=== PATIENT | male | born 1960 | race Two or more races ===

== ENCOUNTER 2022-04-19 01:06 | Emergency (ER) | payer OTHER ==
[~2022-04-19] VITALS: Ht 167.6 cm; Wt 87.1 kg
--- NOTE | 2022-04-19 01:35 | NUR ---
TO ER BED 7. BIBS C/O FLU SYMPTOMS. PT IS ALERT AND ORIENTED. RR EVEN AND NONLABORED. CONNECTED TO POX AND HEART MONITOR. AWAITING MD SIMON
--- NOTE | 2022-04-19 01:52 | NUR ---
COVID, INFLUENZA, AND STREP SWAB COLLECTED
--- NOTE | 2022-04-19 02:58 | NUR ---
Patient discharged to home in stable condition. Written and verbal after care instructions given. Patient verbalizes understanding of instruction.
[2022-04-19 02:59] VITALS: BP 148/76
== END 2022-04-19 03:00 | disposition home or self-care (01) ==
LOC: ER 01:08
DX: J06.9 Acute upper respiratory infection, unspecified (principal); Z20.822 Contact with and (suspected) exposure to COVID-19; I10 Essential (primary) hypertension; Z95.5 Presence of coronary angioplasty implant and graft
CPT/HCPCS: 99283; 87426; 87804; 87880; C9803; 86403-TC